=== PATIENT | female | born 1980 | race Caucasian/White ===

== ENCOUNTER 2021-04-20 09:01 | Outpatient (CLI) | payer OTHER, SELFPAY ==
--- NOTE | 2021-04-29 23:51 | WPDSLEEPSTUD ---
Sleep Study Date of Study: 04/20/21 <Le Pelletier DO - Last Filed: 04/30/21 17:05> Ordering Provider: Livia Sun MD <Le Pelletier DO - Last Filed: 04/30/21 17:05> Interpreting Physician: Le Pelletier DO <eL Pelletier DO - Last Filed: 04/30/21 17:05> Sleep Study Type: Polysomnogram <Le Pelletier DO - Last Filed: 04/30/21 17:05> Height: 1.63 m <Le Pelletier DO - Last Filed: 04/30/21 17:05> Weight: 94.347 kg <Le Pelletier DO - Last Filed: 04/30/21 17:05> Body Mass Index: 35.6 <Le Pelletier DO - Last Filed: 04/30/21 17:05> Neck Circumference (inches): 14 <Le Pelletier DO - Last Filed: 04/30/21 17:05> Weaver: 10 <Le Peleltier DO - Last Filed: 04/30/21 17:05> Reason for Sleep Study Patient was 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 She had a HSAT in 2017 that showed mild CAROLYNN. She stopped using autoPAP after 1 year due to the mask/headgear causing headaches and not improving daytime sleepiness. She was previously being followed by Dr. Joyner for her sleep issues. She has never had a MSLT or in-lab sleep study. <Le Pelletier DO - Last Filed: 04/30/21 17:05> Sleep History The patient denies awakening from sleep short of breath. She denies awakening at night with heartburn, belching or cough. She rarely snores and it is not loud enough others complain. She occasionally has trouble sleeping when she has a cold. She denies waking up gasping for air throughout the night. She denies having breathing problems at night observed by others. She occasionally sweats excessively at night. She occasionally notices heart palpitations or irregular heartbeats during the night. She frequently falls asleep during the day but never while driving. She constantly experiences loss of muscle tone when extremely emotional. She occasionally has trouble at school or work due to sleepiness. She denies sleep paralysis. She frequently experiences vivid dream likes things upon awakening or falling asleep. She denies having nightmares. She occasionally has thoughts racing through her mind. She occasionally feels sad or depressed. She occasionally has and dieting. She frequently notices parts of her body jerks. She rarely kicks during the night. She denies crawling aching feelings in her legs as well as leg pain during the night. She denies grinding her teeth during sleep and awakening with morning doffing. She is constantly bothered by pain during the day but rarely awakened by pain during the night. She occasionally wakes up feeling stiff in the morning with sore or achy muscles. She frequently wakes up with pain in the neck, spine and other joints. She goes to bed at midnight on weekdays and 3:00 a.m. on the weekends. He takes in 20 minutes to fall asleep. She wakes up 1-2 times throughout the night to urinate. She can fall back asleep within 20 minutes. She wakes up at 8:30 a.m. on the weekdays and after noon on the weekends. She typically gets a minimum of 9 hours of sleep per night. She will stay in bed for 10 minutes after waking up in the morning. She is currently living with his fijee. She does not consume any caffeinated beverages within 2 hours of bedtime. She does not engage in physical exercise before bedtime. She will watch television before falling asleep. She will take naps in the afternoon or the evening but they are not refreshing. She drinks 2-3 caffeinated beverages per day. She quit smoking cigarettes several years ago. She denies alcohol and recreational drug use. <Le Pelletier DO - Last Filed: 04/30/21 17:05> COUNT INCLUDES THE [facility] Past Medical History Medical History: Medical History (Updated 04/30/21 @ 17:01 by Le Pelletier DO) Hypersomnolence Obstructive sleep apnea <Le Pelletier DO - Last Filed: 04/30/21 17:05> Social History
[2021-04-30 17:05] VITALS: BMI 35.6
== END 2021-04-21 08:28 | disposition home or self-care (01) ==
LOC: ANHCSM 09:02
PROVIDERS: PCP Internal Medicine; Visit Provider Internal Medicine Critical Care Medicine
DX: G47.10 Hypersomnia, unspecified (principal)
CPT/HCPCS: 95810

== ENCOUNTER 2021-05-09 07:28 | Outpatient (CLI) | payer OTHER, SELFPAY ==
--- NOTE | ~2021-05-09 | XR_ITS ---
EXAMINATION: XR chest 2V DATE: 05/09/2021 08:19 INDICATION: Shortness of breath TECHNIQUE: PA and lateral views of the chest are obtained. COMPARISON: None available FINDINGS: The lungs are free of acute opacities. There is no pleural effusion or pneumothorax. The ca rdiomediastinal silhouette is normal. There is mild thoracic spondylosis. IMPRESSION: 1. No acute cardiopulmonary abnormality. Reviewed, dictated and finalized at location A. R BUNDLER
--- NOTE | ~2021-05-09 | NM_ITS ---
EXAMINATION: NM pulmonary perfusion DATE: 05/09/2021 08:24 INDICATION: Shortness of breath TECHNIQUE: 2.5 mCi Tc-99m MAA by intravenous route. Scintigraphic images of the chest were obtained. COMPARISON: Chest radiograph dated 05/09/2021 FINDINGS: There is relatively homogeneous perfusion throughout the lungs. No discrete perfusion defects identi fied. IMPRESSION: 1. Low probability for pulmonary embolism. Reviewed, dictated and finalized at location A. TEAM MEMBER
--- NOTE | 2021-05-09 09:09 | ECHO_ITS ---
Patient Info Name: Jazmyne Damon Age: 41 years : 1980 Gender: Female Ht: 64 in Wt: 207 lbs BSA: 2.10 m2 HR: 85 bpm BP: 139 / 106 mmHg Technical Quality: Good Exam Date: 05/09/2021 9:24 AM Exam Location: [facility] Patient Status: Outpatient Admit Date: 05/09/2021 Staff Ordering Physician: Livia Sun MD [place]ingo Attendant: Gallo Mclain RDCS, RT Attending Provider: Livia Sun MD Referring Physician: Corinne SCRUGGS; Exam Type: CA echo doppler color flow Study Info Indications R06.02 - Shortness of breath Complete two-dimensional, color flow and Doppler transthoracic echocardiogram is performed. Strain analysis performed. Summary 1. Complete two-dimensional, color flow and Doppler transthoracic echocardiogram is performed. 2. Left ventricular chamber dimension is normal. 3. Left ventricular systolic function is normal, estimated at 60-65%. 4. The left ventricular diastolic function is normal. 5. E/e' 8 is minimally elevated. 6. Global longitudinal strain is normal at 20.3%. 7. There is trace tricuspid valve regurgitation. Left Ventricle Global longitudinal strain is normal at 20.3%. E/e' 8 is minimally elevated. Left ventricular chamber dimension is normal. Left ventricular systolic function is normal, estimated at 60-65%. The left ventricular diastolic function is normal. Right Ventricle Right ventricular systolic function is normal and with normal TAPSE 2.0 cm. Right ventricular chamber dimension is normal. Left Atria Left atrial chamber dimension is normal. Right Atria Right atrial chamber dimension is normal. Aortic Valve The aortic valve is trileaflet. There is no aortic valve stenosis. There is no aortic valve regurgitation. Pulmonic Valve There is no pulmonic regurgitation. Mitral Valve There is no mitral valve stenosis. There is no mitral valve regurgitation. Tricuspid Valve RVSP is not calculated due to an inadequate TR jet. There is trace tricuspid valve regurgitation. Pericardium/Pleural There is no pericardial effusion. Inferior Vena Cava Normal inferior vena cava with >50% collapse upon inspiration consistent with normal right atrial pressure, 5 mmHg. Aorta The aortic root size at the sinus of Valsalva is normal. Left Ventricular Outflow Tract Name Value Normal LVOT 2D LVOT Diameter 2.0 cm LVOT Doppler LVOT Peak Gradient 5 mmHg LVOT Mean Gradient 3 mmHg LVOT VTI 22 cm LVOT VTI/AV VTI Ratio 0.8 LVOT Stroke Volume 65 ml LVOT CO 5.7 l/min LVOT CI 2.7 l/min/m2 Mitral Valve Name Value Normal MV Doppler MV Decel Johnston 458 cm/s2 MV PH
--- NOTE | 2021-05-09 13:22 | WPDSIXMINUTE ---
Six Minute Walk Procedure Procedure Performed Pulmonary Stress Test (6 min walk) Six Minute Walk This is a 6 minute walk test. The test was performed and interpreted in accordance with the 2014 ERS/ATS task force guidelines. Findings: The patient's resting room air oxygen saturation measured by pulse oximetry was 99% and heart rate was 88 bpm. Patient ambulated for 426 meters and oxygen saturation remained 99 to 100%. Heart rate at the end of the study was 112 bpm. The patient did not qualify for supplemental oxygen at rest or with ambulation. There are no prior studies for comparison.
--- NOTE | 2021-05-09 13:23 | WPDPFTINT ---
PFT Procedure Performed PFT Procedure Performed Spirometry with Pre/Post Bronchodilator Plethysmography (Lung Vol) Diffusing Cap (DLCO) Flow Vol Loop PFT Interpretation This is a pulmonary function test with pre and post-bronchodilator spirometry, plethysmography and diffusing capacity. The test was performed and results interpreted in accordance with the 2019 and 2005 ATS/ERS Task Force guidelines respectively using the Global Lung Function Initiative-2012 reference equations. Patient demonstrated good effort and cooperation. Reproducibility criteria were met. The quality of the pre bronchodilator spirometry maneuver was Grade B and post bronchodilator spirometry maneuver was Grade A. Findings: Spirometry: the contour the inspiratory and expiratory flow tracing are normal. The pre bronchodilator FVC is 3.81 L, 103% predicted. The pre bronchodilator FEV1 is 2.95 L, 97% predicted. The FEV1: FVC ratio 77%. The post bronchodilator FVC is 3.63 L, representing a 5% decrease. The post bronchodilator FEV1 is 3.02 L, representing a 2% increase. The post bronchodilator FEV1: FVC ratio is 83%. Plethysmography: The total lung capacity is 5.00 L, 99% predicted. The functional residual capacity is 1.88 L, 67% predicted. The residual volume is 1.20 L, 75% predicted. Diffusing capacity: The diffusing capacity unadjusted for hemoglobin is 23.0, 97% predicted. The diffusing capacity adjusted for alveolar volume is 55.24, 110% predicted. Impression: The spirometry is normal without evidence of an obstructive abnormality. There is no significant improvement after inhaling a single dose of albuterol. The lung volumes are normal. The diffusing capacity is normal. There are no prior studies for comparison
== END 2021-05-09 07:29 | disposition home or self-care (01) ==
PROVIDERS: PCP Internal Medicine; Visit Provider Internal Medicine Critical Care Medicine
DX: R06.02 Shortness of breath (principal)
CPT/HCPCS: 71046; 78580; 93306; 94060; 94618; 94726; 94729; A9540

== ENCOUNTER 2021-09-10 08:35 | Outpatient (CLI) | payer OTHER, SELFPAY ==
--- NOTE | 2021-09-28 13:53 | WPDSLEEPSTUD ---
Sleep Study Date of Study: 09/10/21 Ordering Provider: Livia Sun MD Interpreting Physician: Le Pelletier DO Sleep Study Type: Polysomnogram Height: 1.63 m Weight: 96.615 kg Body Mass Index: 36.6 Neck Circumference (inches): 15 [place]: 14 Reason for Sleep Study Excessive daytime sleepiness Sleep History The patient is a 41 year old female with CAROLYNN, GERD, hypothyroidism, migraines and history of tobacco abuse had a sleep study ordered by her backend python developer for evaluation of CAROLYNN and daytime hypersomnia. The patient denies awakening from sleep short of breath.? She denies awakening at night with heartburn, belching or cough.? She rarely snores and it is not loud enough others complain.? She occasionally has trouble sleeping when she has a cold.? She denies waking up gasping for air throughout the night.? She denies having breathing problems at night observed by others.? She occasionally sweats excessively at night.? She occasionally notices heart palpitations or irregular heartbeats during the night.? She frequently falls asleep during the day but never while driving.? She constantly experiences loss of muscle tone when extremely emotional.? She occasionally has trouble at school or work due to sleepiness.? She denies sleep paralysis.? She frequently experiences vivid dream likes things upon awakening or falling asleep.? She denies having nightmares.? She occasionally has thoughts racing through her mind.? She occasionally feels sad or depressed.? She occasionally has and dieting.? She frequently notices parts of her body jerks.? She rarely kicks during the night.? She denies crawling aching feelings in her legs as well as leg pain during the night.? She denies grinding her teeth during sleep and awakening with morning doffing.? She is constantly bothered by pain during the day but rarely awakened by pain during the night.? She occasionally wakes up feeling stiff in the morning with sore or achy muscles.? She frequently wakes up with pain in the neck, spine and other joints.? She goes to bed at midnight on weekdays and 3:00 a.m. on the weekends.? He takes in 20 minutes to fall asleep.? She wakes up 1-2 times throughout the night to urinate.? She can fall back asleep within 20 minutes.? She wakes up at 8:30 a.m. on the weekdays and after noon on the weekends.? She typically gets a minimum of 9 hours of sleep per night.? She will stay in bed for 10 minutes after waking up in the morning.? She is currently living with his fiancee.? She does not consume any caffeinated beverages within 2 hours of bedtime.? She does not engage in physical exercise before bedtime.? She will watch television before falling asleep.? She will take naps in the afternoon or the evening but they are not refreshing.? She drinks 2-3 caffeinated beverages per day.? She quit smoking cigarettes several years ago.? She denies alcohol and recreational drug use. [facility] Past Medical History Medical History Hypersomnolence Obstructive sleep apnea Social History Social History Social History: patient states only smoking for one summer. Medications Home Medications Medication Instructions Recorded Confirmed Type L norgest/E estradiol-E estrad 1 tablet PO DAILY 04/17/21 History 0.15 mg-30 mcg (84)/10 mcg(7) tabs,3mos ([place]) butalbital 50 mg-acetaminophen 300 1 cap PO Q4H PRN 04/17/21 History mg-caffeine 40 mg-codeine 30 mg cap duloxetine 60 mg capsule,delayed 60 mg PO DAILY 04/17/21 History release levothyroxine 100 mcg capsule 100 mcg PO DAILY 04/17/21 History magnesium oxide 250 mg PO DAILY 04/17/21 History omeprazole 40 mg capsule,delayed 40 mg PO DAILY 04/17/21 History release topiramate 100 mg capsule 100 mg PO DAILY 04/17/21 History sprinkle,extended release 24 hr cyclobenzaprine 5 mg tablet 5 mg PO .prn PRN 07/17
--- NOTE | 2021-09-28 14:06 | WPDSLEEPSTUD ---
Sleep Study Date of Study: 09/10/21 Ordering Provider: Livia Sun MD Interpreting Physician: Le Pelletier DO Sleep Study Type: Multiple Sleep Latency Test Height: 1.63 m Weight: 96.615 kg Body Mass Index: 36.6 Neck Circumference (inches): 15 [place]: 14 Reason for Sleep Study Excessive daytime sleepiness Sleep History Please see sleep history on PSG report from the previous night. [facility] Past Medical History Medical History Hypersomnolence Obstructive sleep apnea Social History Social History Social History: patient states only smoking for one summer. Medications Home Medications Medication Instructions Recorded Confirmed Type L norgest/E estradiol-E estrad 1 tablet PO DAILY 04/17/21 History 0.15 mg-30 mcg (84)/10 mcg(7) tabs,3mos ([place]) butalbital 50 mg-acetaminophen 300 1 cap PO Q4H PRN 04/17/21 History mg-caffeine 40 mg-codeine 30 mg cap duloxetine 60 mg capsule,delayed 60 mg PO DAILY 04/17/21 History release levothyroxine 100 mcg capsule 100 mcg PO DAILY 04/17/21 History magnesium oxide 250 mg PO DAILY 04/17/21 History omeprazole 40 mg capsule,delayed 40 mg PO DAILY 04/17/21 History release topiramate 100 mg capsule 100 mg PO DAILY 04/17/21 History sprinkle,extended release 24 hr cyclobenzaprine 5 mg tablet 5 mg PO .prn PRN 07/17/21 History Sleep Procedure The recording montage for the MSLT includes central EEG (C3-A2, C4-A1) and occipital (O1-A2, O2-A1) derivations, left and right eye electrooculograms (EOGs), mental/submental electromyogram (EMG), and electrocardiogram (EKG). Nap 1 commenced at 08:04:50 AM. Sleep onset was 08:14:00 AM. SOREM was not present. Nap 1 was terminated at 08:29:00. The patient said that sleep occurred and reported dreaming. Nap 2 commenced at 10:04:00 AM . Sleep onset was 10:16:00 AM. SOREM was not present. Nap 2 was terminated at 10:31:00 AM. The patient said that sleep occurred and reported dreaming. Nap 3 commenced at 12:03:00 PM. Sleep onset was 12:20:00 PM. SOREM was not present. Nap 3 was terminated at 12:35:00 PM. The patient said that sleep did not occur. Nap 4 commenced at 14:04:00 PM. The patient did not fall asleep. SOREM was not present. Nap 4 was terminated at 14:24:00 PM. The patient said that sleep did not occur. Nap 5 commenced at 16:04:00 PM. Sleep onset was 16:18:00 PM. SOREM was not present. Nap 5 was terminated at 16:18:00 PM. The patient said that sleep occurred and patient reported dreaming. The mean sleep latency is 14.3 minutes. The patient slept on 4 naps. The patient perceived sleep on 4 naps and slept on 4 of 5 nap opportunities. There were no SOREMs. Sleep Architecture N/A Respiratory Analysis N/A Arousals N/A Periodic Limb Movements N/A Oximetry Data N/A Snoring Profile N/A Cardiac Profile N/A EEG Profile EEG was normal and showed no signs of seizure activity. Assessment and Plan Assessment and Plan (1) Excessive daytime sleepiness: Code(s): G47.19 - Other hypersomnia Status: Acute Assessment and Plan: The patient had a mean sleep latency of 14.3 minutes which is in normal range. The patient slept on 4 naps. There were no SOREMs. The patient had a sleep latency of 26.2 minutes on the PSG from the preceding night with no SOREM. I recommend that the patient's sleep schedule and sleep hygiene be reviewed. The patient should complete 2 weeks of sleep logs. I also recommend that the patient be screened for possible mood disorders. Data The data obtained during this sleep study is adequate for interpretation. Certification This sleep study has been reviewed by a board certified sleep medicine physician.
[2021-09-28 15:52] VITALS: BMI 36.6
[2021-09-28 15:55] VITALS: BMI 36.6
== END 2021-09-11 16:47 | disposition home or self-care (01) ==
LOC: ANHCSM 08:36
PROVIDERS: PCP Internal Medicine; Visit Provider Internal Medicine Critical Care Medicine
DX: G47.19 Other hypersomnia (principal); G47.33 Obstructive sleep apnea (adult) (pediatric)
CPT/HCPCS: 95805; 95810